=== PATIENT | female | born 1990 | race Caucasian/White ===

== ENCOUNTER 2020-04-04 00:55 | Outpatient (CLI) | payer OTHER, SELFPAY ==
[2020-04-04 19:30] LABS: SARS-CoV-2 RNA PCR Negative
== END 2020-04-04 00:56 | disposition home or self-care (01) ==
LOC: ANHCOVIDDT 00:55
PROVIDERS: Visit Provider Obstetrics & Gynecology
DX: Z01.812 Encounter for preprocedural laboratory examination (principal); Z11.59 Encounter for screening for other viral diseases
CPT/HCPCS: 87635; C9803; U0003

== ENCOUNTER 2020-04-06 00:54 | Day surgery (SDC) | payer OTHER, SELFPAY ==
[2020-03-26 13:41] VITALS: BMI 25.9
--- NOTE | 2020-04-01 14:15 | PM.IMHP ---
H&P: HPI History of Present Illness Date/Time: 04/01/20 14:15 Chief Complaint: Desires sterilization Narrative: Krystin Moreno is a 29 year old female who desires sterilization Review of Systems Review of Systems: All systems reviewed & are unremarkable except as noted in HPI and below PMFSH Past Medical History Medical History delivery delivered X3 10/27/06 Full term female 7lbs 9oz 01/11/10 Full term male 7lbs 14oz 01/17/17 Full term male 6lbs 9oz History of blood transfusion Hypertension Tonsillectomy planned Surgical History Surgical History H/O removal of cyst Family History Family History Grandparent Diabetes mellitus Father Hypertension Social History Social History (System 03/02/20 @ 13:53 by Paulina Stinson) Smoking packs per day: 0.5 Smoking cigarettes per day: 10.0 Years smoked: 18 Smoking pack-years: 9.00 Smoking status: Former smoker Tobacco type: cigarettes Alcohol intake: never Substance use: never Spiritual care concerns: No Meds Home Medications and Allergies Home Medications Medication Instructions Recorded Confirmed Type No Home Medications 03/26/20 03/26/20 History Allergies Allergy/AdvReac Type Severity Reaction Status Date / Time naproxen Allergy Severe Rash Verified 03/26/20 13:40 Exam Const: General: no acute distress, well developed, alert and awake Resp: Auscultation: clear to auscultation bilaterally Cardio: Rate: regular rate Rhythm: regular rhythm GI: Inspection: non-distended GI Palp: Yes Soft to palpation and No Tenderness to palpation present (GI) : Bimanual exam- vagina & uterus: normal bimanual exam, uterine size normal, uterine mobility normal, non-tender and soft Bimanual Exam- Adnexa, other: normal adnexae, no masses and No adnexal tenderness Extrem: General: no calf tenderness and no edema Psych: Mental Status: mental status grossly normal Assessment and Plan Assessment and plan (1) Contraception management: Code(s): Z30.9 - Encounter for contraceptive management, unspecified Status: Acute Assessment and Plan: She signed consent after risks, benefits, contraceptives, and alternatives discussed. She expressed understanding and wishes to proceed.
--- NOTE | 2020-04-02 14:44 | WPDANESEPPF ---
Anes - Initial Pre Proc Eval Procedure: Operation Date: 04/06/20 13:30 Proposed Procedures p Laparoscopic Bilateral Tubal Sterilization with Filschie Clips - Nikia Ortiz MD Date/Time: 04/02/20 14:44 Surgeon: Nikia Ortiz MD Pre Op Diagnosis: desires sterilization Patient Data Age: 29 Gender: F Height: 1.8 m Weight: 84.5 kg Allergies Allergy/AdvReac Type Severity Reaction Status Date / Time naproxen Allergy Severe Rash Verified 04/06/20 11:57 Home Medications Medication Instructions Recorded Confirmed Type No Home Medications 03/26/20 04/06/20 History Patient hx anesthesia problems: none Family hx anesthesia problems: none PMFSH Past Medical History Medical History delivery delivered X3 10/27/06 Full term female 7lbs 9oz 01/11/10 Full term male 7lbs 14oz 01/17/17 Full term male 6lbs 9oz History of blood transfusion Hypertension Tonsillectomy planned Surgical History Surgical History H/O removal of cyst Family History Family History Grandparent Diabetes mellitus Father Hypertension Social History Social History (System 03/02/20 @ 13:53 by Paulina Stinson) Smoking packs per day: 0.5 Smoking cigarettes per day: 10.0 Years smoked: 18 Smoking pack-years: 9.00 Smoking status: Former smoker Tobacco type: cigarettes Alcohol intake: never Substance use: never Living arrangements: with family Spiritual care concerns: No Anes - Eval Final PreProcedure Day of Procedure 04/02/20 14:44 Patient weight: overweight Heart: regular rate and rhythm Lungs: clear to auscultation and normal air movement Airway: Mallampati scale class II Neurological: alert and oriented Last oral intake: >/= 8 hours ASA classification: II Emergent: no Anesthetic plan: proceed Anesthesia type and monitoring: general ETT Informed Consent: The patient's anesthetic plan and its attendant risks and benefits were discussed with the patient/family/POA. Questions were solicited and answers provided to the satisfaction of the patient/family/POA.
[2020-04-06] VITALS (10 sets, daily range): BP systolic 124–136; BP diastolic 81–99; PULSE 51–82; RESP 14–20; TEMP 36.1–37.3; O2SAT 96–100; BMI 26.5
[2020-04-06] MEDS: LACTATED RINGERS 1,000 ML 30 ML IV CONT ×2 (12:13→14:10)
[2020-04-06] MEDS: ACETAMINOPHEN 500 MG TABLET 1000 MG PO (12:13)
--- NOTE | 2020-04-06 13:21 | WPDHPUPDATE1 ---
History and Physical Update Update Date/Time: 04/06/20 13:21 History and Physical has been reviewed, including an updated exam of the patient. There are NO changes in the patient's condition. Risks, benefits, and alternatives have been discussed and questions answered. Patient agrees to proceed with procedure.
--- NOTE | 2020-04-06 13:22 | SUR.PREOP ---
spoke with Dr. Ortiz about naproxen allergy and order set calling for toradol. Angel spoke with patient and requests order for IV ibuprofen.
--- NOTE | 2020-04-06 13:25 | SUR.PREOP ---
ibuprofen sent to OR with [facility].
[2020-04-06] MEDS: IBUPROFEN IV 800 MG/200 ML 800 MG/200 ML BAG 400 MG IVPB (13:27)
--- NOTE | 2020-04-06 13:33 | P.OP_ITS ---
Procedure Note - Detailed Date of procedure: 04/06/20 Pre-op diagnosis: desires sterilization Post-op diagnosis: same Procedure performed: L/S BTL with Filshie clips Description of procedure: She was taken to the operating room where general a nesthesia was obtained. She was prepared and draped in the normal sterile fashion in the dorsal lithotomy position. Marcaine was injected infraumbilically. A 5 mm skin incision was made in the infraumbilical fold with a scalpel. A 5 mm non bladed trocar was placed with the camera in the trocar under direct visualization into the peritoneal cavity. Insufflation was begun. She was placed in Trendelenburg. Inspection of the pelvis revealed the findings as noted below. A Filshie clip was placed on the mid isthmic portion of the left fallopian tube, making sure the entire circumference of the tube was contained in the clip. The same procedure was performed on the right fallopian tube. All operative sites were inspected. Hemostasis was assured. The pneumoperitoneum was allowed to escape. Both trocars were removed. Both trocar sites were closed using 4 0 Monocryl in subcuticular fashion. She tolerated the procedure well. Sponge, lap, needle, and instrument counts were correct x2. She was taken to the recovery room in stable condition. Anesthesia: GETA Surgeon: Nikia Ortiz MD Estimated blood loss (mL): 10 Drains: No Packing: No Pathology: none sent Complications: No immediate complications Condition: stable Disposition: PACU Findings: Normal uterus, tubes, ovaries, liver, gall bladder, and appendix
[2020-04-06] MEDS: BUPIVACAINE HCL 0.5% PF 30 ML VIAL INFILTRATE (13:49)
--- NOTE | 2020-04-06 13:56 | SUR.OPER ---
[place] [id number], exp 2020-08-07 bilateral tubes
--- NOTE | 2020-04-06 14:01 | SUR.OPER ---
Noted in preop dental cavity between 2 front teeth black.
[2020-04-06] MEDS: fentaNYL CITRATE INJ (*CRX) 100 MCG/2 ML VIAL 25 MCG IV PUSH ×6 (14:25→15:21)
[2020-04-06] MEDS: HYDROmorphone HCL INJ (*CRX) 1 MG/ML SYR 0.25 MG IV PUSH ×8 (14:38→15:13)
[2020-04-06] MEDS: oxyCODONE HCL (*CRX) 5 MG TAB IR PO (15:40)
== END 2020-04-06 16:32 | disposition home or self-care (01) ==
PROVIDERS: Visit Provider Obstetrics & Gynecology
PROC: (CPT 58671; principal; 2020-04-06 13:30)
DX: Z30.2 Encounter for sterilization (principal); Z87.891 Personal history of nicotine dependence
CPT/HCPCS: 58671; A9270; J0330; J1100; J1170; J1741; J1940; J2001; J2250; J2405; J2704; J3010; J7120